=== PATIENT | female | born 1990 | race Caucasian/White ===

== ENCOUNTER 2017-08-11 15:14 | Inpatient (IN) ==
[2017-08-11] MEDS: LACTATED RINGERS 1,000 ML IV SCH (15:51)
[2017-08-11] MEDS ORDERED: MEPERIDINE 50 MG/1 ML VIAL IV PRN (16:02)
[2017-08-11] MEDS ORDERED: BUTORPHANOL 2 MG/ML VIAL IV PRN (16:02)
[2017-08-11 16:36] LABS: Basophils % 0.2 % (0.0-0.8); Eosinophils % 0.1 % (0.00-10.9); Hematocrit 35.8 VOL% (35.7-47.0); Hemoglobin 12.1 GM/DL (12.0-16.0); Immature Granulocytes % 0.8 %; Immature Granulocytes Absolute 0.08 #; Lymphocytes # 1.5 10*3/uL (1.4-4.0); Lymphocytes % 14.5 % (21.3-54.2); Mean Corpuscular HGB Conc 33.8 GM/DL (32-36); Mean Corpuscular Hemoglobin 33 PG (27-34); Mean Corpuscular Volume 96.8 FL (87-102); Mean Platelet Volume 12.1 FL (9.6-12.0); Monocytes # 0.8 10*3/uL (0.11-0.8); Monocytes % 7.6 % (1.7-12.7); Neutrophils # 7.7 10*3/uL (1.4-7.4); Neutrophils % 76.8 % (38.7-73.9); Platelet Count 180 T/CUMM (130-400); Red Cell Distribution Width 13.8 % (9.3-17.3)
[2017-08-11 16:46] LABS: INR 0.8; Partial Thromboplastin Time 26.1 SECS (0-40)
[2017-08-11 16:57] LABS: Alanine Aminotransferase 16 U/L (13-56); Albumin 2.9 G/DL (3.4-5.0); Alkaline Phosphatase 201 U/L (45-117); Aspartate Amino Transferase 22 U/L (0-37); Bilirubin,Total < 0.39 MG/DL (0.2-1.0); Blood Urea Nitrogen 9 MG/DL (7-18); Calcium 9.3 MG/DL (8.5-10.1); Glucose 95 MG/DL (74-106); Osmolality,Calculated 279.3 MOS/KG (273-304); Potassium 3.5 MMOL/L (3.5-5.1); Sodium 141 MMOL/L (136-145); Total Protein 6.8 G/DL (6.4-8.3); Uric Acid 5.8 MG/DL (2.6-6.0)
[2017-08-11] MEDS ORDERED: AMPICILLIN INJ 2,000 MG in SODIUM CHLORIDE 0.9% 100 ML IV ONE (20:30)
[2017-08-12] MEDS: AMPICILLIN INJ 1,000 MG in SODIUM CHLORIDE 0.9% 100 ML IV SCH ×3 (00:30→09:01)
[2017-08-12] MEDS: ONDANSETRON 4 MG/2 ML VIAL IV PRN ×2 (00:34→07:41)
[2017-08-12] MEDS ORDERED: CITRIC ACID/SODIUM CITRATE 30 ML UDCUP PO ONE (03:01)
[2017-08-12] MEDS ORDERED: fentaNYL 2 MCG/ROPIV 0.2% EPID 150 ML EPIDURAL SCH (03:30)
[2017-08-12] MEDS ORDERED: FAMOTIDINE 20 MG/2 ML VIAL IV ONE (03:30)
[2017-08-12] MEDS: LACTATED RINGERS 1,000 ML IV SCH (03:36)
[2017-08-12] MEDS ORDERED: ePHEDrine 50 MG/ML AMP IV ONE (04:00)
[2017-08-12] MEDS ORDERED: TERBUTALINE 1 MG/1 ML VIAL SUBCUT ONE (04:42)
[2017-08-12 06:20] LABS: Apearance,Urine CLEAR (Clear); Bilirubin,Urine Negative (Negative); Blood, Urine Small mg/dL (Negative); Glucose,Urine (UA) Negative (Negative); Ketones,Urine Negative (Negative); Mucus,Urine Occasional /LPF (Occasional); Nitrite,Urine Negative (Negative); Protein,Urine Negative; RBC,Urine 9 /HPF (0-4); Urine Color Yellow (Yellow); Urine Specific Gravity 1.015 (1.001-1.035); Urine Urobilinogen < 2.0 EU/DL (0.2-1.0); WBC,Urine 1 /HPF (0-6)
[2017-08-12] MEDS ORDERED: OXYTOCIN/LR 20 UNIT/1,000 ML BAG IV ONE ×2 (09:14→09:55)
[2017-08-12] MEDS ORDERED: LIDOCAINE 1% 50 ML VIAL ONE (09:26)
[2017-08-12] MEDS ORDERED: miSOPROStol 200 MCG TABLET ONE (09:26)
[2017-08-12] MEDS ORDERED: RHO(D) IMMUNE GLOBULIN 300 MCG SYRINGE IM ONE (09:55)
[2017-08-12] MEDS ORDERED: ACETAMINOPHEN 325 MG TABLET PO PRN (09:55)
[2017-08-12] MEDS ORDERED: IBUPROFEN 800 MG TABLET PO PRN (09:55)
[2017-08-12] MEDS ORDERED: DIPH/TET/ACEL PERT BOOSTER VACCINE 0.5 ML VIAL IM ONE (09:55)
[2017-08-12] MEDS ORDERED: BISACODYL 10 MG SUPP RECTAL PRN (09:55)
[2017-08-12] MEDS ORDERED: oxyCODONE/ACETAMINOPHEN 5-325 MG TABLET PO PRN ×2 (09:55)
[2017-08-12] MEDS ORDERED: LANOLIN 50% CREAM 0.3 OZ TUBE TOP PRN (09:55)
[2017-08-12] MEDS ORDERED: ONDANSETRON 4 MG/2 ML VIAL IV PRN (09:55)
[2017-08-12] MEDS ORDERED: BENZOCAINE 20%/MENTHOL 0.5% SPRAY 56 GM CAN TOP PRN (09:55)
[2017-08-12] MEDS ORDERED: MEASLES/MUMPS/RUBELLA VACCINE 0.5 ML VIAL SUBCUT ONE (09:55)
[2017-08-12] MEDS ORDERED: HYDROCORTISONE 2.5% RECTAL CREAM 30 GM TUBE TOP PRN (10:00)
[2017-08-12] MEDS ORDERED: WITCH HAZEL PADS 100/JAR TOP PRN (10:00)
[2017-08-12] MEDS: DOCUSATE SODIUM 100 MG CAPSULE PO SCH (20:56)
[2017-08-13] MEDS: LEVOTHYROXINE 50 MCG TABLET PO SCH (06:24)
[2017-08-13 06:33] LABS: Eosinophils % 0.1 % (0.00-10.9); Monocytes # 0.9 10*3/uL (0.11-0.8); Monocytes % 5.9 % (1.7-12.7); Red Cell Distribution Width 13.8 % (9.3-17.3)
[2017-08-13 06:40] LABS: Basophils % 0.1 % (0.0-0.8); Hematocrit 28.6 VOL% (35.7-47.0); Immature Granulocytes % 0.6 %; Immature Granulocytes Absolute 0.09 #; Lymphocytes # 1.8 10*3/uL (1.4-4.0); Lymphocytes % 12.1 % (21.3-54.2); Mean Corpuscular HGB Conc 34.3 GM/DL (32-36); Mean Corpuscular Hemoglobin 33 PG (27-34); Mean Corpuscular Volume 96.9 FL (87-102); Mean Platelet Volume 12.3 FL (9.6-12.0); Neutrophils # 12.1 10*3/uL (1.4-7.4); Neutrophils % 81.2 % (38.7-73.9)
[2017-08-13 06:41] LABS: Hemoglobin 9.8 GM/DL (12.0-16.0); Platelet Count 140 T/CUMM (130-400); Red Blood Count 2.95 MC/CUMM (3.8-5.5)
[2017-08-13] MEDS: DOCUSATE SODIUM 100 MG CAPSULE PO SCH ×2 (09:34→21:00)
[2017-08-14] MEDS: LEVOTHYROXINE 50 MCG TABLET PO SCH (07:18)
[2017-08-14] MEDS: DOCUSATE SODIUM 100 MG CAPSULE PO SCH (09:10)
[2017-08-14 11:44] VITALS: BP 131/76
== END 2017-08-14 15:25 | disposition home or self-care (01) | DRG 775 ==
LOC: N.LDOUT 15:14 → N.LD 15:16 → N.OB 08-12 13:30
PROVIDERS: ADMIT Obstetrics & Gynecology; ATTEND Obstetrics & Gynecology